=== PATIENT | male | born 1970 | race African-American/Black ===

== ENCOUNTER 2017-03-02 23:19 | Emergency (ER) | payer OTHER ==
[~2017-03-02] VITALS: Ht 180.3 cm; Wt 118.4 kg
--- NOTE | ~2017-03-02 | EKG ---
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1970 Requested By: Phyllis Busch Order Number: [id number] MD: Abelino Quiroz Measurements Intervals [place] Rate: 81 P: 57 NM: 179 QRS: -49 QRSD: 85 T: 40 QT: 381 QTc: 443 Interpretive Statements Sinus rhythm Probable left atrial enlargement Abnormal R-wave progression, early transition Inferior infarct, old Lateral leads are also involved No previous ECG available for comparison Electronically Signed On 03-03-2017 22:19:34 CDT by Abelino Quiroz [email or web address] <ELECTRONICALLY SIGNED> By: Abelino Quiroz MD 03/03/17 [id number] Abelino Quiroz MD /SALAZAR
[2017-03-02 23:59] LABS: ABSOLUTE NEUTROPHILS 1.8 thou/uL (1.4-8.2); BASOPHILS 1.2 % (0.0-2.0); EOSINOPHILS 4.1 % (0.0-3.0); HEMATOCRIT 44.7 % (42.0-52.0); HEMOGLOBIN 15.4 gm/dL (14.0-18.0); LYMPHOCYTES 50.2 % (24.0-44.0); MCH 28.4 pg (26.0-34.0); MCHC 34.4 g/dL (28.0-37.0); MCV 82.6 fL (80.0-100.0); MONOCYTES 10.9 % (1.0-8.0); PLATELET COUNT 270 thou/uL (150-400); POLYS 33.6 % (36.0-66.0); RBC 5.41 mil/uL (4.50-6.00); WBC 5.3 thou/uL (4.0-11.0)
[2017-03-03 00:03] LABS: MANUAL DIFF NO
[2017-03-03 00:06] LABS: ANION GAP 7 mmol/L (7-16); BUN 15 mg/dL (7-18); CHLORIDE 100 mmol/L (98-107); CO2 31 mmol/L (21-32); CREATININE 1.4 mg/dL (0.7-1.3); GLUCOSE 108 mg/dL (74-106); POTASSIUM 3.8 mmol/L (3.5-5.1); SODIUM 138 mmol/L (136-145)
[2017-03-03] MEDS ORDERED: METOPROLOL TART25 MG PO (00:08)
[2017-03-03 00:15] LABS: TROPONIN-I < 0.04 ng/mL (<0.04-0.07)
[2017-03-03 01:06] VITALS: BP 158/109
== END 2017-03-03 01:07 | disposition home or self-care (01) ==
LOC: ER 23:19
PROVIDERS: Emergency Medicine
DX: I10 Essential (primary) hypertension (principal); R51 Headache

== ENCOUNTER 2020-10-01 04:52 | Emergency (ER) | payer OTHER ==
[~2020-10-01] VITALS: Ht 180.3 cm; Wt 95.3 kg
[~2020-10-01 04:52] MED LIST: METOPROLOL TART25 MG PO
[2020-10-01] MEDS ORDERED: HYDROCHLOROTH12.5 M1 PO (05:04)
[2020-10-01] MEDS ORDERED: ZESTRIL40 MG PO (05:04)
[2020-10-01 05:12] LABS: ABSOLUTE NEUTROPHILS 2.2 thou/uL (1.4-8.2); BASOPHILS 0.6 % (0.0-2.0); EOSINOPHILS 1.2 % (0.0-3.0); HEMATOCRIT 43.5 % (42.0-52.0); HEMOGLOBIN 14.7 gm/dL (14.0-18.0); LYMPHOCYTES 24.2 % (24.0-44.0); MCH 28.7 pg (26.0-34.0); MCHC 33.9 g/dL (28.0-37.0); MCV 84.7 fL (80.0-100.0); MONOCYTES 15.1 % (1.0-8.0); PLATELET COUNT 229 thou/uL (150-400); POLYS 58.9 % (36.0-66.0); RBC 5.14 mil/uL (4.50-6.00); RDW 14.6 % (10.5-14.5); WBC 3.7 thou/uL (4.0-11.0)
[2020-10-01 05:22] LABS: ANION GAP 12 mmol/L (7-16); BUN 17 mg/dL (7-18); CALCIUM 9.3 mg/dL (8.5-10.1); CHLORIDE 100 mmol/L (98-107); CO2 24 mmol/L (21-32); CREATININE 1.4 mg/dL (0.7-1.3); GLUCOSE 122 mg/dL (74-106); POTASSIUM 3.3 mmol/L (3.5-5.1); SODIUM 136 mmol/L (136-145)
[2020-10-01 05:30] LABS: TROPONIN-I <0.06 ng/mL (<0.06)
[2020-10-01] MEDS ORDERED: ADCIRCA20 MG PO (06:16)
[2020-10-01] MEDS ORDERED: SLEEP AID50 MG PO (06:17)
[2020-10-01] MEDS ORDERED: ZOLOFT25 MG PO (06:17)
[2020-10-01] MEDS ORDERED: PRAZOSIN HCL1 MG PO (06:18)
[2020-10-01 07:58] VITALS: BP 153/99
--- NOTE | 2020-10-01 11:29 | EKG ---
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
--- NOTE | 2020-10-01 11:29 | EKG ---
[place] [address] [address] [facility] [employer] [address] ELECTROCARDIOGRAM REPORT Name: KIMBERLEE KIRBY Room #: DEP KAMARI Garza#: [id number] Admission: 10/01/20 Attend Phys: Discharge: 10/01/20 Date of : [birth year] Report #: [id number] 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 10/01/20 [id number] Fredy Mo MD, FACC /EPI
== END 2020-10-01 08:06 | disposition home or self-care (01) ==
LOC: ER 04:52
PROVIDERS: Emergency Medicine
DX: R07.89 Other chest pain (principal); F43.21 Adjustment disorder with depressed mood; Z79.899 Other long term (current) drug therapy; Z88.0 Allergy status to penicillin; Z91.048 Other nonmedicinal substance allergy status